=== PATIENT | female | born 1965 | race Two or more races ===

== ENCOUNTER 2022-08-06 17:08 | Emergency (ER) | payer OTHER ==
[~2022-08-06] VITALS: Ht 157.5 cm; Wt 76.7 kg
[2022-08-06] MEDS ORDERED: LISINOPRIL40 MG PO (17:42)
[2022-08-06] MEDS ORDERED: JENTADUETO 2.51 EAC2 PO (17:43)
== END 2022-08-06 21:31 | disposition home or self-care (01) ==
LOC: ER 17:08
DX: I87.2 Venous insufficiency (chronic) (peripheral) (principal); Z88.0 Allergy status to penicillin; Z88.2 Allergy status to sulfonamides

== ENCOUNTER 2022-08-07 07:05 | Emergency (ER) | payer OTHER ==
[~2022-08-07] VITALS: Ht 157.5 cm; Wt 76.7 kg
[~2022-08-07 07:05] MED LIST: JENTADUETO 2.51 EAC2 PO; LISINOPRIL40 MG PO
== END 2022-08-07 10:43 | disposition home or self-care (01) ==
LOC: ER 07:05
DX: I87.2 Venous insufficiency (chronic) (peripheral) (principal); M79.604 Pain in right leg; Z88.0 Allergy status to penicillin; Z88.2 Allergy status to sulfonamides